=== PATIENT | female | born 1980 | race Two or more races ===

== ENCOUNTER 2019-01-13 12:44 | Inpatient (IN) | payer OTHER ==
[~2019-01-13] VITALS: Ht 157.5 cm; Wt 118.0 kg
[~2019-01-13 12:44] MED LIST: MELO7.5T12 PO; VALA10002 PO
[2019-01-13] MEDS ORDERED: SERT-153 PO ×2 (13:19→13:21)
[2019-01-13] MEDS ORDERED: MELO7.5T12 PO (13:20)
[2019-01-13 13:35] LABS: ALANINE AMINOTRANSFERASE 18 U/L (12-78); ALBUMIN 3.5 G/DL (3.4-5.0); ALKALINE PHOSPHATASE 75 IU/L (46-116); ANION GAP 8 (8-16); ASPARTATE AMINO TRANSFERASE 11 U/L (10-37); BILIRUBIN,TOTAL 0.9 MG/DL (0.1-1.0); BLOOD UREA NITROGEN 11 MG/DL (7-18); BUN/CREATININE RATIO 14.7 (6.6-38.0); CALCIUM 8.5 MG/DL (8.5-10.1); CHLORIDE 108 MMOL/L (99-107); CREATININE 0.75 MG/DL (0.40-0.90); GLUCOSE 142 MG/DL (70-104); POTASSIUM 3.5 MMOL/L (3.5-5.1); SODIUM 141 MMOL/L (135-145); TOTAL CARBON DIOXIDE 24.9 MMOL/L (24-32); eGFR 87 ML/MIN
[2019-01-13 13:40] LABS: PARTIAL THROMBOPLASTIN TIME 26 SECONDS (22-32)
[2019-01-13 14:02] LABS: EOSINOPHILS # (AUTO) 0.1 X10'3 (0-0.9); LYMPHOCYTES # (AUTO) 1.4 X10'3 (1.1-4.8); MEAN CORPUSCULAR HEMOGLOBIN 18.3 PG (27.0-31.0); MONOCYTES # (AUTO) 0.3 X10'3 (0-0.9); MONOCYTES % (AUTO) 4.3 % (2-12)
[2019-01-13 14:04] LABS: BASOPHILS % (AUTO) 0.4 % (0-1); HEMATOCRIT 23.2 % (35.0-45.0); LYMPHOCYTES % (AUTO) 23.7 % (21-51); MEAN CORPUSCULAR HGB CONC 29.8 g/dL (33.0-36.5); MEAN CORPUSCULAR VOLUME 61.5 FL (78-98); MEAN PLATELET VOLUME 8.9 FL (7.4-10.4); NEUTROPHILS % (AUTO) 69.6 % (42-75); PLATELET COUNT 136 X10'3 (140-440); RED BLOOD COUNT 3.76 X10'6 (4.20-5.60); RED CELL DISTRIBUTION WIDTH 18.6 % (11.5-14.5); WHITE BLOOD COUNT 5.8 X10'3 (4.5-11.0)
[2019-01-13 14:07] LABS: HEMOGLOBIN 6.9 g/dl (12.0-16.0)
[2019-01-13 14:22] LABS: ANISOCYTOSIS 2+; HYPOCHROMASIA 2+; MICROCYTOSIS 2+; PLATELET ESTIMATE DECREASED
[2019-01-13 14:23] LABS: POIKILOCYTOSIS FEW; POLYCHROMASIA 1+
--- NOTE | 2019-01-13 14:30 | NUR ---
CALLED BLOOD BANK,SPOKE TO ABDI-BLOOD NOT READY.
--- NOTE | 2019-01-13 14:46 | NUR ---
DR. VICKERS AT BEDSIDE.
[2019-01-13 14:59] VITALS: BP 123/68
[2019-01-13] MEDS ORDERED: HYDROcodone/acetaminophen 5mg/325mg tablet PO PRN (15:00)
[2019-01-13] MEDS ORDERED: magnesium Cl slow-release 64mg tablet PO PRN (15:00)
[2019-01-13] MEDS ORDERED: potassium Cl 20 mEq SR tablet PO PRN ×2 (15:00)
[2019-01-13] MEDS ORDERED: magnesium 4gm in 100ml NS 100 ML IV PRN (15:00)
[2019-01-13] MEDS ORDERED: acetaminophen 325mg tablet PO PRN ×2 (15:00)
[2019-01-13] MEDS ORDERED: morphine 2 MG/ML inj. syringe IV PRN (15:00)
[2019-01-13] MEDS ORDERED: ondansetron/PF 4mg/2ml inj IV PRN (15:00)
[2019-01-13] MEDS ORDERED: potassium CL 10mEq/100ml bag 100 ML IV PRN ×2 (15:00)
[2019-01-13] MEDS ORDERED: magnesium 2GM in 50ml NS 50 ML IV PRN (15:00)
--- NOTE | 2019-01-13 15:07 | NUR ---
bt started.we will monitor.
[2019-01-13] MEDS: normal saline 1000ml 1,000 ML IV SCH ×2 (15:18→23:17)
[2019-01-13 15:20] VITALS: BP 130/57
[2019-01-13 17:04] VITALS: BP 115/53
[2019-01-13 17:05] VITALS: BP 115/53
--- NOTE | 2019-01-13 17:19 | NUR ---
patient aware that urine is needed,asleep at this time,no reaction from BT.
[2019-01-13 18:04] LABS: URINE HCG NEGATIVE (NEG)
[2019-01-13 19:08] LABS: BASOPHILS % (AUTO) 0.3 % (0-1); EOSINOPHILS # (AUTO) 0.1 X10'3 (0-0.9); EOSINOPHILS % (AUTO) 1.9 % (0-6); HEMATOCRIT 26.3 % (35.0-45.0); HEMOGLOBIN 8.1 g/dl (12.0-16.0); LYMPHOCYTES # (AUTO) 1.9 X10'3 (1.1-4.8); LYMPHOCYTES % (AUTO) 25.5 % (21-51); MEAN CORPUSCULAR HEMOGLOBIN 19.8 PG (27.0-31.0); MEAN CORPUSCULAR HGB CONC 30.7 g/dL (33.0-36.5); MEAN CORPUSCULAR VOLUME 64.4 FL (78-98); MEAN PLATELET VOLUME 8.9 FL (7.4-10.4); MONOCYTES # (AUTO) 0.3 X10'3 (0-0.9); MONOCYTES % (AUTO) 4.7 % (2-12); NEUTROPHILS % (AUTO) 67.6 % (42-75); PLATELET COUNT 146 X10'3 (140-440); RED BLOOD COUNT 4.08 X10'6 (4.20-5.60); RED CELL DISTRIBUTION WIDTH 21.5 % (11.5-14.5); WHITE BLOOD COUNT 7.5 X10'3 (4.5-11.0)
[2019-01-13] MEDS: docusate sod 100mg capsule PO SCH (20:00)
[2019-01-13 20:05] LABS: OCCULT BLOOD STOOL NEGATIVE (Neg)
[2019-01-13] MEDS ORDERED: temazepam 15mg capsule PO PRN (21:00)
--- NOTE | 2019-01-13 21:20 | NUR ---
ATTEMPTED TO CALL REPORT TO SURG[facility], WAS TOLD THEY WOULD CALL ME
[2019-01-14 00:14] VITALS: BP 143/57
[2019-01-14 02:44] LABS: BASOPHILS % (AUTO) 0.5 % (0-1); EOSINOPHILS # (AUTO) 0.1 X10'3 (0-0.9); HEMATOCRIT 24.6 % (35.0-45.0); HEMOGLOBIN 7.4 g/dl (12.0-16.0); LYMPHOCYTES # (AUTO) 2.3 X10'3 (1.1-4.8); LYMPHOCYTES % (AUTO) 31.9 % (21-51); MEAN CORPUSCULAR HEMOGLOBIN 19.7 PG (27.0-31.0); MEAN CORPUSCULAR HGB CONC 30.2 g/dL (33.0-36.5); MEAN CORPUSCULAR VOLUME 65.2 FL (78-98); MEAN PLATELET VOLUME 9.4 FL (7.4-10.4); MONOCYTES # (AUTO) 0.4 X10'3 (0-0.9); MONOCYTES % (AUTO) 5.4 % (2-12); NEUTROPHILS # (AUTO) 4.3 X10'3 (1.8-7.7); NEUTROPHILS % (AUTO) 60.2 % (42-75); PLATELET COUNT 113 X10'3 (140-440); RED BLOOD COUNT 3.77 X10'6 (4.20-5.60); RED CELL DISTRIBUTION WIDTH 21.9 % (11.5-14.5); WHITE BLOOD COUNT 7.1 X10'3 (4.5-11.0)
[2019-01-14 02:48] LABS: ALBUMIN 3.2 G/DL (3.4-5.0); ANION GAP 8 (8-16); BLOOD UREA NITROGEN 10 MG/DL (7-18); CALCIUM 8.7 MG/DL (8.5-10.1); CHLORIDE 110 MMOL/L (99-107); CREATININE 0.77 MG/DL (0.40-0.90); GLUCOSE 107 MG/DL (70-104); POTASSIUM 3.8 MMOL/L (3.5-5.1); SODIUM 142 MMOL/L (135-145); TOTAL CARBON DIOXIDE 24.1 MMOL/L (24-32); eGFR 85 ML/MIN
--- NOTE | 2019-01-14 06:17 | NUR ---
Problems reprioritized. Patient report given, questions answered & plan of care reviewed with Alma MCWILLIAMS. Addendum: 01/14/19 at 0617 by Kelsey Messina RN Amended: Links added.
--- NOTE | 2019-01-14 06:30 | NUR ---
Patient in room [facility]. I have received report from Kelsey/Sharonda MCWILLIAMS and had the opportunity to ask questions and assume patient care.
[2019-01-14] MEDS: docusate sod 100mg capsule PO SCH (07:47)
[2019-01-14 07:49] VITALS: BP 115/69
[2019-01-14] MEDS ORDERED: K and/or MAG REPLACEMENT MC SCH (08:00)
[2019-01-14] MEDS ORDERED: sertraline 50mg tablet PO SCH (08:00)
[2019-01-14 11:10] VITALS: BP 136/75
--- NOTE | 2019-01-14 11:39 | NUR ---
Dr. Vaughn informed of H&H drop from 8.1/26.3 to 7.4/24.6 today. No new orders at this time.
[2019-01-14] MEDS: normal saline 1000ml 1,000 ML IV SCH (12:56)
[2019-01-14 16:16] LABS: BASOPHILS % (AUTO) 0.4 % (0-1); EOSINOPHILS # (AUTO) 0.1 X10'3 (0-0.9); EOSINOPHILS % (AUTO) 1.9 % (0-6); HEMATOCRIT 26.5 % (35.0-45.0); LYMPHOCYTES # (AUTO) 1.7 X10'3 (1.1-4.8); LYMPHOCYTES % (AUTO) 24.8 % (21-51); MEAN CORPUSCULAR HEMOGLOBIN 19.4 PG (27.0-31.0); MEAN CORPUSCULAR HGB CONC 30.1 g/dL (33.0-36.5); MEAN CORPUSCULAR VOLUME 64.6 FL (78-98); MEAN PLATELET VOLUME 9.7 FL (7.4-10.4); MONOCYTES # (AUTO) 0.4 X10'3 (0-0.9); MONOCYTES % (AUTO) 5.8 % (2-12); NEUTROPHILS # (AUTO) 4.6 X10'3 (1.8-7.7); NEUTROPHILS % (AUTO) 67.1 % (42-75); PLATELET COUNT 154 X10'3 (140-440); RED CELL DISTRIBUTION WIDTH 21.3 % (11.5-14.5); WHITE BLOOD COUNT 6.8 X10'3 (4.5-11.0)
--- NOTE | 2019-01-14 18:40 | NUR ---
Patient stating she needs to leave tonight due to not having child & adolescent psychiatrist tomorrow. Informed MD. Dr. Vaughn stated she is okay to discharge. Aware of most recent H&H.
--- NOTE | 2019-01-14 18:40 | NUR ---
Problems reprioritized. Patient report given, questions answered & plan of care reviewed with Satya MCWILLIAMS.
== END 2019-01-14 18:56 | disposition home or self-care (01) | DRG 755 ==
LOC: ER 12:45 → SUR 3N 21:48
PROVIDERS: ADMIT Internal Medicine; ATTEND Family Medicine
PROC: 30233N1 Transfusion of Nonautologous Red Blood Cells into Peripheral Vein, Percutaneous Approach (ICD-10-PCS; principal; 2019-01-13)
DX: C53.9 Malignant neoplasm of cervix uteri, unspecified (principal); Z68.42 Body mass index [BMI] 45.0-49.9, adult; D64.9 Anemia, unspecified; F32.9 Major depressive disorder, single episode, unspecified; G89.29 Other chronic pain; M54.5 Low back pain; E66.01 Morbid (severe) obesity due to excess calories; Z88.8 Allergy status to other drugs, medicaments and biological substances; Z91.018 Allergy to other foods; Z79.899 Other long term (current) drug therapy
CPT/HCPCS: 36415; 71045; 80048; 80053; 81025; 82272; 83735; 84484; 85025; 85610; 85730; 86885; 86900; 86901; 86920; 87081; 93005; 99285; G0378; J7030; P9016

== ENCOUNTER 2019-04-01 14:45 | Emergency (ER) | payer OTHER ==
[~2019-04-01] VITALS: Ht 157.5 cm; Wt 115.9 kg
[~2019-04-01 14:45] MED LIST changes: +SERT-153 PO; -VALA10002 PO
[2019-04-01 14:55] VITALS: BP 122/67
[2019-04-01] MEDS ORDERED: LIDOcaine 5% patch TP STA (15:17)
[2019-04-01] MEDS ORDERED: ketorolac tromethamine 15mg/ml inj. IM ONE (15:20)
== END 2019-04-01 16:02 | disposition home or self-care (01) ==
LOC: ER 14:46
DX: S46.912A Strain of unspecified muscle, fascia and tendon at shoulder and upper arm level, left arm, initial encounter (principal); M54.2 Cervicalgia; M79.605 Pain in left leg; M79.604 Pain in right leg; M25.551 Pain in right hip; M25.552 Pain in left hip; M25.511 Pain in right shoulder; R11.0 Nausea; G89.29 Other chronic pain; Z88.8 Allergy status to other drugs, medicaments and biological substances; Z79.899 Other long term (current) drug therapy; Z91.018 Allergy to other foods; Z85.41 Personal history of malignant neoplasm of cervix uteri; W22.8XXA Striking against or struck by other objects, initial encounter; Y93.89 Activity, other specified; Y92.811 Bus as the place of occurrence of the external cause; Y99.8 Other external cause status
CPT/HCPCS: 73030; 73590; 96372; 99283; J1885